=== PATIENT | female | born 1985 | race Caucasian/White ===

== ENCOUNTER 2017-08-10 07:35 | Day surgery (SDC) | payer OTHER ==
[2017-08-06 12:59] LABS: Basophils # (auto) 0 uL; Basophils % (auto) 0.8 % (0.0-2.0); Eosinophils # (auto) 0.2 uL; Eosinophils % (auto) 3.4 % (0.0-7.0); Hematocrit 39.2 % (36.0-46.0); Lymphocytes # (auto) 1.5 uL; Lymphocytes % (auto) 29.2 % (10.0-50.0); Mean Corpuscular Hemoglobin 27.7 pg (28.0-32.0); Mean Corpuscular Hgb Conc. 33.2 g/dL (32.0-36.0); Mean Corpuscular Volume 83.5 fL (80.0-100.0); Mean Platelet Volume 9.1 fL (6.9-10.8); Monocytes # (auto) 0.5 uL; Monocytes % (auto) 10.1 % (0.0-12.0); Neutrophils # (auto) 2.9 uL; Neutrophils % (auto) 56.5 % (37.0-80.0); Nucleated Red Blood Cells % 0.1 %; Platelet Count (auto) 243 10^3/uL (140-450); Red Cell Distribution Width 15.2 % (11.8-14.3); White Blood Cell 5.1 10^3/uL (4.4-10.8)
[2017-08-06 13:30] LABS: INR 1.03 (0.9-1.15); Partial Thromboplastin Time 29.9 sec (22.64-33.71); Prothrombin Time 11.2 sec (9.37-12.3)
[~2017-08-10] VITALS: Ht 154.9 cm; Wt 54.4 kg
[~2017-08-10 07:35] MED LIST: CHOL20009 PO; FOLI1TAB6 PO
[2017-08-10] MEDS ORDERED: diphenhdrAMINE HCL 50 MG/1 ML VL ONE (08:09)
[2017-08-10] MEDS ORDERED: SODIUM CHLORIDE LOCK 10 ML ONE (08:09)
[2017-08-10] MEDS ORDERED: FLUMAZENIL 0.1 MG/ML INJ 10ML MDV IV ONE (08:11)
[2017-08-10] MEDS ORDERED: NALOXONE HCL 0.4 MG/ML VIAL ONE (08:11)
[2017-08-10] MEDS: fentaNYL CITRATE 100 MCG/2 ML VL ONE ×3 (09:00→09:09)
[2017-08-10] MEDS: MIDAZOLAM HCL 5 MG/ML-1ML VIAL ONE ×3 (09:00→09:09)
[2017-08-10 10:09] VITALS: BP 114/77
== END 2017-08-10 10:10 | disposition home or self-care (01) ==
LOC: GI 07:35
PROVIDERS: ATTEND Internal Medicine Gastroenterology
DX: K64.8 Other hemorrhoids (principal); K64.4 Residual hemorrhoidal skin tags; D69.6 Thrombocytopenia, unspecified
CPT/HCPCS: 36415; 45378; 84702; 85025; 85610; 85730; J1200; J2250; J3010; J7030; 99152

== ENCOUNTER → 2017-09-06 | Outpatient (CLI) | payer OTHER ==
[2017-09-06 09:22] LABS: Urine RBC None Seen /hpf (0 - 4)
[2017-09-06 09:30] LABS: Urine Bilirubin Negative (Negative); Urine Blood Negative /uL (Negative); Urine Color Yellow (Yellow); Urine Glucose Normal (Normal); Urine Ketone Negative (Negative); Urine Nitrite Negative (Negative); Urine Urobilinogen Normal (Negative); Urine pH 6.5 (5.0-8.0)
== END | disposition home or self-care (01) ==
LOC: LAB 09:02
DX: N39.0 Urinary tract infection, site not specified (principal); M32.9 Systemic lupus erythematosus, unspecified
CPT/HCPCS: 81001

== ENCOUNTER 2025-02-06 08:53 | Emergency (ER) | payer OTHER, MEDICAID ==
[~2025-02-06] VITALS: Ht 154.9 cm; Wt 60.7 kg
[~2025-02-06 08:53] MED LIST changes: +FOLI-119 PO; -FOLI1TAB6 PO
[2025-02-06 09:30] VITALS: BP 112/72; PULSE 81; RESP 18; TEMP 98.4; O2SAT 97
--- NOTE | 2025-02-06 09:47 | ED.PDOC ---
Musculoskeletal HPI Comments A 39 YEAR OLD FEMALE PRESENTS TO THE ED WITH CHIEF COMPLAINT OF RIGHT KNEE PAIN. PATIENT REPORTS THAT SHE HAS HAD MILD RIGHT KNEE PAIN FOR THE PAST MONTH, HOWEVER, LAST NIGHT THE PAIN WORSENED AND WAS ACCOMPANIED BY ASSOCIATED RIGHT THIGH AND CALF PAIN. PATIENT DENIES ANY NUMBNESS/WEAKNESS/TINGLING OF EXTREMITIES, CHEST PAIN, SOB, FALL, OR INJURY. NO OTHER SYMPTOMS REPORTED AT THIS TIME OF CARE. Chief Complaint: Lower Extremity Time Seen by MD: 09:44 Reviewed Notes: Nurses Notes, Medications, Allergies Allergies: Coded Allergies: NO KNOWN ALLERGIES (Unverified , 08/06/17) Home Meds Active Scripts Diclofenac Sodium (Topical) (Voltaren Arthritis Pain) 1 % Gel, 1 % EX BID, #60 GEL Prov:CHRISTINA EDWARDS 02/06/25 Reported Medications Cholecalciferol (VITAMIN D) 2,000 Unit Tab, 2000 UNIT PO DAILY, TAB 08/06/17 Folic Acid (Folic Acid) 1 Mg Tab, 1 MG PO DAILY for 30 Days, MG 08/06/17 Information Source: Patient Mode of Arrival: Wheelchair Location: Right Extremity Location: Calf, Knee, Thigh Timing: Days Prehospital treatment: None Severity: Moderate Able to Move Extremity: Yes Bear Weight: Fully Pain: Moderate Mechanism: Spontaneous Circumstances: Spontaneous Onset of Symptoms: Spontaneous Symptoms: Pain DVT Risk Factors: NONE Associated signs and symptoms: Knee pain, Leg pain Past Medical History PAST MEDICAL HISTORY: Denies Surgical History: Denies all surgeries CLOTHING PRESSER History: No Pertinent CLOTHING PRESSER History Family History Family History: Reviewed,noncontributory to illness Social History Smoker: Non-Smoker Alcohol: Denies ETOH Use Drugs: Denies Drug Use Lives In: Home Constitutional: denies: chills, diaphoresis, fatigue, fever, malaise, sweats, weakness, others EENTM: denies: blurred vision, double vision, ear bleeding, ear discharge, ear drainage, ear pain, ear ringing, eye pain, eye redness, hearing loss, mouth pain, mouth swelling, nasal discharge, nose bleeding, nose congestion, nose pain, photophobia, tearing, throat pain, throat swelling, voice changes, others Respiratory: denies: cough, hemoptysis, orthopnea, SOB at rest, shortness of breath, SOB with excertion, stridor, wheezing, others Cardiovascular: denies: chest pain, dizzy spells, diaphoresis, Dyspnea on exertion, edema, irregular heart beat, left arm pain, lightheadedness, palpitations, PND, syncope, others Gastrointestinal: denies: abdomen distended, abdominal pain, blood streaked bowels, constipated, diarrhea, dysphagia, difficulty swallowing, hematemesis, melena, nausea, poor appetite, poor fluid intake, rectal bleeding, rectal pain, vomiting, others Genitourinary: denies: abnormal vagina bleeding, burning, dyspareunia, dysuria, flank pain, frequency, hematuria, incontinence, pain, , vagina discharge, urgency, others Neurological: denies: dizziness, fainting, headache, left sided numbness, left sided weakness, numbness, paresthesia, pre-existing deficit, right sided numbness, right sided weakness, seizure, speech problems, tingling, tremors, weakness, others Musculoskeletal: reports: joint pain, joint swelling, muscle pain, others (RIGHT KNEE PAIN, RIGHT THIGH PAIN, RIGHT CALF PAIN); denies: back pain, gout, muscle stiffness, neck pain Integumetry: denies: bruises, change in color, change in hair/nails, dryness, laceration, lesions, lumps, rash, wounds, others Allergic/Immunocompromised: denies: Difficulty Healing, Frequent Infections, Hives, Itching, others Hematologic/Lymphatic: denies: anemia, blood clots, easy bleeding, easy bruising, swollen glands, others Endocrine: denies: excessive hunger, excessive sweating, excessive thirst, excessive urination, flushing, intolerance to cold, intolerance to heat, unexplained weight gain, unexplained weight loss, others Psychiatric: denies: anxiety, bipolar disorder, depression, hopeless, panic disorder, schizophrenia, sleepless, suicidal, others All Other Systems: Reviewed and Negative Physical Exam General Appearance: No Apparent Distress, Normal HEENT: Normal ENT Inspection, PERRL/EOMI, Pharynx Normal, TMs Normal Neck: Full Range of Motion, Non-Tender, Normal, Normal Inspection Respiratory: Chest Non-Tender, Lungs Clear, No Accessory Muscle Use, No Respiratory Distress, Normal Breath Sounds Cardiovascular: No Edema, No JVD, No Murmur, No Gallop, Normal Peripheral Pulses, Regular Rate/Rhythm Breast Exam: Deferred Gastrointestinal: No Organomegaly, Non Tender, No Pulsatile Mass, Normal Bowel Sounds, Soft Genitalia: Deferred Pelvic: Deferred Rectal: Deferred Extremities: Decreased range of motion, No calf tenderness, Normal capillary refill, Normal inspection, No pedal edema, Tender (AND MILD SWELLING ON RIGHT KNEE, NO BONY TENDERNESS AND DEFORMITY. ), Other (TENDERNESS AND MUSCLE SPASM ON RIGHT INNER THIGH AND INNER LOWER LEG, NO REDNESS AND SWELLING, NO DVT SIGNS. ) Musculoskeletal : Apperance: Normal Neurologic: Alert, revenue cycle consultant II-XII nml as Tested, No Motor Deficits, Normal Affect, Normal Mood, No Sensory Deficits Cerebellar Function: Normal Reflexes: Normal Skin: Dry, Normal Color, Warm Peripheral Pulses: 2+ carotid (R), 2+ carotid (L), 2+ dorsalis pedis (R), 2+ dorsalis pedis (L) Lymphatic: No Adenopathy Was a procedure done? Was a procedure done?: No Differential Diagnosis EXT Differential Diagnosis: Deep Vein Thrombosis, Fracture, Sprain, Dislocation, Contusion, Strain, Bursitis X-Ray, Labs, Meds, VS Vital Signs Date Time Temp Pulse Resp B/P (MAP) Pulse Ox O2 Delivery O2 Flow Rate FiO2 02/06/25 09:30 81 02/06/25 09:30 98.4 81 18 112/72 (85) 97 98.4 02/06/25 08:58 98.4 81 18 112/72 (85) 97 98.4 Current Medications Medications (Trade) Dose Ordered Sig/Stephany Route Start Time Stop Time Status Last Admin Ketorolac Tromethamine (Toradol Injection) 60 mg ONCE ONCE IM 02/06/25 09:45 02/06/25 09:46 DC 02/06/25 09:54 RT KNEE XR: FINDINGS/IMPRESSION: There is no evidence of acute fracture or dislocation. The visualized joint space is well maintained. The alignment is anatomical. There is no radiopaque foreign body. X-Ray, Labs, Meds, VS Comment EXTERNAL MEDICAL RECORDS REVIEWED: [NONE] INDEPENDENT HISTORIANS: [NONE] SOCIAL DETERMINANTS OF HEALTH: [NONE] LABS ORDERED: NONE REVIEWED AND INTERPRETED RESULTS: RT LOWER DVT, RIGHT KNEE XR PRELIMINARY REPORT BY [employer] ATTENDANT SHOWS NO DVT IN RIGHT LEG. ORTHOPEDIC DEPARTMENT PROVIDED APPOINTMENT ON 02/10/25 AT 1:30PM FOR EVALUATION. IMAGING ORDERED: RT LOWER DVT, RIGHT KNEE XR TREATMENTS ORDERED: TORADOL 60MG IM PROCEDURES PERFORMED: NONE CRITICAL CARE TIME: NONE I HAVE DISCUSSED THE PATIENT WITH THE ATTENDING PHYSICIAN DR. QUINTERO AND HE AGREES WITH THE PATIENT'S PLAN OF CARE AND DISPOSITION. BASED ON HISTORY OF PRESENT ILLNESS, AND PHYSICAL EXAM, PATIENT WILL BE DISCHARGED HOME. DISCUSSED PLAN FOR DISCHARGE HOME WITH RX: VOLTAREN GEL. MEDICATION WARNINGS GIVEN. SHARED DECISION MAKING: DISCUSSED WITH PATIENT THAT THEIR WORKUP WAS NORMAL. PATIENT INSTRUCTED TO FOLLOW UP WITH PRIMARY CARE PROVIDER IN 1-2 DAYS FOR RE- EVALUATION OF SYMPTOMS. PATIENT VERBALIZES UNDERSTANDING TO RETURN TO ED FOR NEW OR WORSENING SYMPTOMS OR IF FOLLOW UP WITH PCP CANNOT BE OBTAINED. PATIENT FEELS COMFORTABLE GOING HOME AT THIS TIME. ALL QUESTIONS ADDRESSED AT TIME OF DISCHARGE. Time of 1ST Reevaluation: 11:00 Reevaluation 1ST: Improved Patient Education/Counseling: Diagnosis, Treatment, Need For Follow Up Family Education/Counseling: Diagnosis, Treatment, Need For Follow Up Medical Screening: No EMC Exist At This Time Departure 1 Departure Time of Disposition: 11:00 Impression: Primary Impression: Internal derangement of right knee Disposition: 01 HOME / SELF CARE / HOMELESS Condition: Stable Additional Instructions: FOLLOW-UP WITH PCP IN 1 TO 2 DAYS. TAKE MEDICATIONS PRESCRIBED. RETURN TO ED FOR ANY NEW OR WORSENING SYMPTOMS. e-Prescriptions Diclofenac Sodium (Topical) (Voltaren Arthritis Pain) 1 % Gel 1 % EX BID, #60 GEL Prov: CHRISTINA EDWARDS 02/06/25 Discharged With: Self, Spouse Critical Care Note Critical Care Time?: No Stability Stability form required: No Heart Score Heart Score: Heart Score Response (Comments) Value History N/A 0 EKG N/A 0 Age N/A 0 Risk Factors N/A 0 Troponin N/A 0 Total 0 I personally scribed for CHRISTINA EDWARDS ([email or web address]) on 02/06/25 at 09:47. Electronically submitted by Judd Smiley ([email or web address]). I personally scribed for CHRISTINA EDWARDS ([email or web address]) on 02/06/25 at 10:41. Electronically submitted by Judd Smiley ([email or web address]). CHRISTINA EDWARDS February 06, 2025 09:47
[2025-02-06] MEDS: KETOROLAC TROMETH 60MG/2ML VIAL IM ONE (09:54)
--- NOTE | 2025-02-06 10:10 | DVH ---
CLINICAL INDICATION: PAIN, NO INJURY TECHNIQUE: 3 radiographic views of the right knee were obtained. Comparison: None FINDINGS/IMPRESSION: There is no evidence of acute fracture or dislocation. The visualized joint space is well maintained. The alignment is anatomical. There is no radiopaque foreign body.
[2025-02-06] MEDS ORDERED: DICL1GEL59 EX (10:47)
--- NOTE | 2025-02-06 10:55 | DVH ---
Right lower extremity venous duplex Clinical History: RIGHT THIGH PAIN TO RIGHT CALF Comparison: None Findings: Duplex Doppler evaluation of the deep venous system of the right lower extremity from the common femo ral vein to the popliteal vein including color Doppler and spectral/pulsed waveform analysis was perf ormed. The common femoral vein demonstrates appropriate compressibility and waveform variability. There is compressibility/patency of the great saphenous vein at the proximal thigh. The femoral vein demonstrates appropriate compressibility and waveform variability. The deep femoral vein demonstrates appropriate compressibility and waveform variability. The popliteal vein demonstrates appropriate compressibility and waveform variability. There is normal compressibility at the tibioperoneal trunk. Impression: No right femoropopliteal venous thrombosis. If clinical concern/symptoms persist or worsen, short-interval follow-up study is suggested.
== END 2025-02-06 10:48 | disposition home or self-care (01) ==
LOC: ER 08:53
DX: M23.91 Unspecified internal derangement of right knee (principal); M79.651 Pain in right thigh
CPT/HCPCS: 73562; 93971; 96372; 99285; J1885